=== PATIENT | female | born 1940 | race Caucasian/White ===

== ENCOUNTER 2017-10-30 12:32 | Outpatient (CLI) | payer MEDICARE, BC, OTHER | END 2017-10-30 12:33 | LOC: CARD 12:32 | PROVIDERS: ATTEND Internal Medicine Cardiovascular Disease | DX: I48.91 Unspecified atrial fibrillation (principal); I50.9 Heart failure, unspecified; I10 Essential (primary) hypertension; E78.5 Hyperlipidemia, unspecified; E11.9 Type 2 diabetes mellitus without complications; E66.9 Obesity, unspecified; N18.9 Chronic kidney disease, unspecified | CPT/HCPCS: G0463 ==

== ENCOUNTER 2018-02-05 12:10 | Outpatient (CLI) | payer MEDICARE, BC, OTHER | END 2018-02-05 12:12 | LOC: CARD 12:10 | PROVIDERS: ATTEND Internal Medicine Cardiovascular Disease | DX: I48.91 Unspecified atrial fibrillation (principal); I50.9 Heart failure, unspecified; I10 Essential (primary) hypertension; E78.5 Hyperlipidemia, unspecified; E11.9 Type 2 diabetes mellitus without complications; E66.9 Obesity, unspecified; N18.9 Chronic kidney disease, unspecified | CPT/HCPCS: G0463 ==

== ENCOUNTER 2018-04-03 10:29 | Inpatient (IN) | payer MEDICARE, BC, OTHER ==
[~2018-04-03 10:29] MED LIST: SENNOSIDES/DOCUSATE SODIUM 1 EACH TABLET PO ONE
[2018-04-03 11:38] LABS: MEAN CORPUSCULAR VOLUME 85.8 fl (80.0-100.0)
[2018-04-03 12:06] LABS: MEAN CORPUSCULAR HEMOGLOBIN 24.5 pg (28.0-34.0)
[2018-04-03 12:08] LABS: MONOCYTES % 10 % (0-11); SEGMENTED NEUTROPHILS % 62 % (39-79)
[2018-04-03 12:09] LABS: ANISOCYTOSIS 1+ (NEGATIVE); HYPOCHROMASIA 1+ (NEGATIVE)
--- NOTE | 2018-04-03 12:37 | ED Physician Documentation ---
Dyspnea - HISTORIAN Historian: patient, paramedics - HPI Stated Complaint: Increasing SOA/weakness/Bilat. Lower ext swelling Chief Complaint: Dyspnea Onset: other (unclear) Duration: continues in ED Initiating Event: out of meds (reports of noncompliance with lasix) Severity: moderate Exacerbated By: change in position, laying flat Further Comments: yes (77 year old female patient sent in from [facility] with complaints of dyspnea, back pain, blood blister on left leg, increased leg edema.) - ROS CONST: weakness EYES/ENT: none GI/: none NEURO/PSYCH: denies: headache MS/SKIN/LYMPH: back pain - PAST HX Lung Disease: none Cardiac Disease: CHF PE Risk Factors: hypertension, other (limited mobility) Surgeries/Procedures: cholecystectomy, other (Gastric bypass, cataract, left great toe amputation) Other History: diabetes Type 2, hyperlipidemia, kidney failure, other (GERD, chronic anemia, depression, chronic A Fib, wounds bilateral lower legs and buttocks, Hx renal calculi, constipation) Allergies/Adverse Reactions: Allergies Allergy/AdvReac Type Severity Reaction Status Date / Time Iodinated Contrast- Oral and Allergy Verified 04/03/18 11:50 IV Dye Home Medications: Ambulatory Orders Medication Instructions Recorded Acetaminophen [Acetaminophen Er] 650 mg PO Q4 PRN u2 08/16/17 Apixaban [Eliquis] 5 mg PO BID u2 08/16/17 Bumetanide 1 mg PO DAILY u2 08/16/17 Insulin Lispro [Humalog] 100 unit SQ sliding scale AC&HS 08/16/17 Magnesium 400 mg PO BID 08/16/17 Felton-3 Fatty Acids [Felton-3] 1,000 mg PO BID av 08/16/17 Pantoprazole Sodium 40 mg PO DAILY u2 08/16/17 Polyethylene Glycol 3350 17 gm PO DAILY 08/16/17 Potassium Chloride 20 meq PO DAILY u2 08/16/17 Ranitidine HCl 150 mg PO BID u2 08/16/17 Sennosides [Senna] 17.2 mg PO DAILY u2 08/16/17 Simvastatin 10 mg PO DAILY u2 08/16/17 Furosemide [Lasix] 1 tab PO DAILY 04/03/18 Furosemide [Lasix] 10 mg PO DAILY 04/03/18 Insulin Glargine,Hum.rec.anlog 10 units SQ HS 04/03/18 [Lantus] - SOCIAL HX Smoking History: non-smoker - FAMILY HX Family History: denies: none - VITAL SIGNS Vital Signs: Vital Signs Temp Pulse Resp BP Pulse Ox 98.2 F 99 H 16 92/41 95 04/03/18 10:30 04/03/18 11:25 04/03/18 10:30 04/03/18 10:30 04/03/18 11:25 - REVIEWED ASSESSMENTS Nursing Assessment Reviewed: Yes Vitals Reviewed: Yes Progress - Progress Progress: Reviewed records from [facility] and Dr Hernandez's note. Call to Dr Webb; will admit to Med Surg. Will place peralta due to buttock and legs wounds. Will give a 1 time dose of IV lasix with BNP 11,271 due to Cr 2.0; defer additional diuretic to Dr Webb. - EKG/XRAY/CT EKG: rhythm (A Fib; Rate 97) ED Results Lab/Radiology - Lab Results Lab Results: Lab Results 04/03/18 04/03/18 04/03/18 10:58 10:50 10:50 WBC 8.87 K/ul K/ul (4.00-12.00) RBC 3.67 M/ul L M/ul (3.90-5.20) Hgb 9.0 g/dL L g/dL (12.0-16.0) Hct 31.5 % L % (34.5-46.5) MCV 85.8 fl fl (80.0-100.0) MCH 24.5 pg L pg (28.0-34.0) MCHC 28.5 g/dL L g/dL (30.0-36.0) RDW 14.7 % H % (11.3-14.3) Plt Count 260 K/mm3 K/mm3 (130-400) Seg Neutrophils % 62 % % (39-79) Band Neutrophils % 22 % H % (0-12) Lymphocytes % 6 % L % (16-50) Monocytes % 10 % % (0-11) Polychromasia 1+ H (NEGATIVE) Hypochromasia 1+ H (NEGATIVE) Anisocytosis 1+ H (NEGATIVE) [place] Cells 1+ H (NEGATIVE) RBC Morph Comment Abnormal H (NORMAL) Sodium 129 mmol/L L mmol/L (136-145) Potassium 4.6 mmol/L mmol/L (3.5-5.1) Chloride 103 mmol/L mmol/L (98-107) Carbon Dioxide 25 mmol/L mmol/L (22-30) BUN 46 mg/dL H mg/dL (7-17) Creatinine 2.00 mg/dL H mg/dL (0.52-1.04) Estimated Creat Clear 56 Est GFR ( Amer) 31 L (60 - ) Est GFR (Non-Af Amer) 26 L (60 - ) Glucose 58 mg/dL L mg/dL (74-106) Calcium 8.6 mg/dL mg/dL (8.4-10.2) Total Bilirubin 0.7 mg/dL mg/dL (0.2-1.3) AST 19 U/L U/L (15-46) ALT 17 U/L U/L (13-69) Alkaline Phosphatase 121 U/L U/L (38-126) NT-Pro-B Natriuret Pep 91454.6 pg/mL H pg/mL (15.0-450.0) Total Protein 6.2 g/dL L g/dL (6.3-8.2) Albumin 2.9 g/dL L g/dL (3.5-5.0) - Radiology Radiology Impressions: Examination: Portable chest History: Evaluate lungs. PCXR, SOA, WEAKNESS (Hx) Comparison exam: None available. Findings: Single view of the chest demonstrates a normal cardiac and mediastinal silhouette. Parenchymal haziness at the left lung base. Obscuration of the left lung base/diaphragm. Right hemithorax without focal infiltrative process. Articular degenerative changes. Impression: Left lung base infiltrate/effusion. Electronically signed on Apr 03, 2018 11:29:39 AM CDT by: Jose Ramon Tan - Orders Orders: ED Orders Category Date Time Status Continuous EKG monitoring Q1H Care 04/03/18 11:25 Active Continuous Pulse Oximetry Q1H Care 04/03/18 11:[address] IV Lock 1T Care 04/03/18 11:01 Active CHEST 1VIEW [RAD] Stat Exams 04/03/18 Ordered BNP [NT-proBNP] Stat Lab 04/03/18 10:58 Completed CBC/PLATELET/DIFF Stat Lab 04/03/18 10:50 Completed CMP Stat Lab 04/03/18 10:50 Completed URINALYSIS Stat Lab 04/03/18 10:30 Ordered EKG WITH COMPARISON Stat Ther 04/03/18 10:57 Ordered Dyspnea Physical Exam - EXAM General Appearance: mild distress EENT: eye inspection normal, ANA Respiratory: no resp. distress, no pain on inspiration, speaks full sentences, decreased air movement (severely decreased in bases) CVS: no murmur, no gallop, no friction rub, pulses full, pulses equal, irregularly irreg. rhythm Abdomen: non-tender, no organomegaly, no distention, no ascites, other (morbid obesity) Skin: pallor, other (dressing to bilateral lower extremities and buttocks - dressings dry and intact; 3 x 7 cm raised serosangenous blister on left proximal thigh) Extremities: no evidence of injury, edema (4+ in bilateral lower legs), other (baseline - patient uses wheelchair; non-ambulatory) Neuro/Psych: oriented x3, weakness (generalized severe weakness, no focal deficit). No: speech abnml Discharge Clincal Impression: Morbid obesity, Hyponatremia, Open wounds involving multiple regions of lower extremity CHF (congestive heart failure) Qualifiers: Heart failure type: combined systolic and diastolic Heart failure chronicity: acute on chronic Qualified Code(s): I50.43 - Acute on chronic combined systolic (congestive) and diastolic (congestive) heart failure Anemia Qualifiers: Anemia type: unspecified type Qualified Code(s): D64.9 - Anemia, unspecified Renal failure Qualifiers: Renal failure chronicity: chronic Chronic kidney disease stage: stage 4 (severe) Qualified Code(s): N18.4 - Chronic kidney disease, stage 4 (severe) Disposition: ADMITTED INPATIENT Decision to Admit: [id number] Decision Time: 12:57
[2018-04-03] MEDS ORDERED: FUROSEMIDE 40 MG/4 ML VIAL IVP ONE (12:50)
[2018-04-03 15:03] LABS: APPEARANCE,URINE CLEAR (CLEAR); COLOR,URINE AMBER (YELLOW); OCCULT BLOOD,URINE 1+ (NEGATIVE); UROBILINOGEN URINE 0.2 Eu (0.2-1.0)
[2018-04-03] MEDS ORDERED: ACETAMINOPHEN 325 MG TABLET PO PRN (15:38)
[2018-04-03 17:00] VITALS: BMI 49.9
[2018-04-03] MEDS: traMADol HCL 50 MG TABLET PO PRN (17:44)
--- NOTE | 2018-04-03 17:58 | History and Physical Report ---
History of Present Illnes - History of Present Illness Reason for Visit: dyspnea History of Present Illness: 77yo white female who has been having some increasing SOB over the last 3 weeks. Patient denies any cough that she is aware. Patient has been having some mild orthopnea symptoms.Patient does have a history of congestive heart failure. Has not been taking her lasix as ordered because it causes her to have urinary incontinence. This AM awoke and had developed a large blister to the upper thigh area. Has been developing blisters to the lower legs for some time. Has gained about 40 lbs [facility]. Has been having some orthopnic symptoms. Has not been coughing, occasional wheezing noted. Has started to have some oxygen to help with breathing. - Past Medical History Cardiac: AFIB, HTN Gastrointestinal: GERD Heme/Onc: Anemia NOS Renal/: Other (kidney stones) Endocrine: Diabetes (2) - Past Surgical History Past Surgical History: Cholecystectomy, Cataract Removal, Tonsillectomy, Other (adenoidectomy, gastric by pass) - Past Family History Mother Family History: , Other (advanced age) Father Family History: Cancer (lung), (88yo) Brother 1 Family History: , Other (parkinson disease) - Past Social History Smoke: # pack years (30), Quit Alcohol: None Drugs: None Lives: Skilled Nursing Domestic Violence: Negative - Health Maintenance Health Maintenance: Pneumococcal Vaccine Influenza Vaccine: No Pneumonia Vaccine: Yes Resuscitation Status: Resusciation Status Resuscitation Status Do Not Resuscitate - Unable to Obtain History Unable to Obtain: Yes Review of Systems - Review of Systems Constitutional: Weakness, Malaise. negative: Fever, Chills Eyes: negative: pain, vision change ENT: negative: Ear Pain, Ear Discharge, Nose Pain, Nose Discharge, Nose Congestion, Mouth Pain, Throat Pain, Throat Swelling Respiratory: Shortness of Breath, SOB with Excertion, Wheezing (mild). negative: Cough, Dry, Hemoptysis, Pleuritic Pain Cardiovascular: Paroxysmal Noc. Dyspnea, Edema. negative: Chest Pain, Palpitations, Orthopnea, Light Headedness Gastrointestinal: Constipation. negative: Nausea, Vomiting, Abdominal Pain, Diarrhea, Hematochezia Genitourinary: Incontinence. negative: Dysuria, Frequency, Hematuria, Retention Musculoskeletal: Shoulder Pain, Back Pain Skin: Lesions (skin blisters). negative: Rash Neurological: negative: Weakness, Numbness, Incoordination, Change in Speech, Confusion - Medications/Allergies Allergies/Adverse Reactions: Allergies Allergy/AdvReac Type Severity Reaction Status Date / Time Iodinated Contrast- Oral and Allergy Mild Cough Verified 04/04/18 10:40 IV Dye Home Medications: Home Medications Insulin Glargine,Hum.rec.anlog [Lantus] 10 units SQ HS 04/03/18 Current Inpatient Medications: Current Inpatient Medications Acetaminophen (Tylenol) 650 mg PO Q4H PRN PRN Reason: Fever >101 Bumetanide (Bumex) 1 mg PO DAILY ELOINA Citalopram Hydrobromide (Celexa) 10 mg PO DAILY ELOINA Furosemide (Lasix) 40 mg IVP 714 ELOINA Magnesium Oxide (Mag-Oxide) 400 mg PO BID ELOINA Miscellaneous (Non Form) 10 each IM HS ELOINA Pantoprazole Sodium (Protonix) 40 mg PO DAILY ELOINA Polyethylene Glycol (Miralax) 17 gm PO DAILY ELOINA Potassium Chloride (Klor-Con M20) 20 meq PO DAILY ELOINA Sennosides (Senokot) 17.2 mg PO DAILY ELOINA Tramadol HCl (Ultram) 50 mg PO Q4 PRN PRN Reason: PAIN Last Admin: 04/03/18 17:44 Dose: 50 mg Exam - Exam Vital Signs: Vital Signs (72 hours) 04/03/18 04/03/18 04/03/18 10:30 11:25 12:25 Temperature 98.2 F Pulse Rate 99 H Pulse Rate [ 100 H Left Pulse ox] Pulse Rate [ Right Pulse ox] Respiratory 16 Rate Blood Pressure 92/41 [Right Arm] O2 Sat by Pulse 92 95 95 Oximetry 04/03/18 04/03/18 04/03/18 13:00 13:16 13:17 Temperature Pulse Rate 100 H Pulse Rate [ 102 H Left Pulse ox] Pulse Rate [ Right Pulse ox] Respiratory 14 Rate Blood Pressure 86/30 [Right Arm] O2 Sat by Pulse 98 98 95 Oximetry 04/03/18 04/03/18 04/03/18 14:00 14:56 15:00 Temperature 97.9 F 97.9 F Pulse Rate 107 H 97 H Pulse Rate [ 102 H Left Pulse ox] Pulse Rate [ 82 82 Right Pulse ox] Respiratory 24 24 Rate Blood Pressure 98/42 98/42 [Right Arm] O2 Sat by Pulse 98 97 98 Oximetry 04/03/18 04/03/18 04/03/18 16:00 17:00 17:10 Temperature Pulse Rate 100 H 100 H Pulse Rate [ Left Pulse ox] Pulse Rate [ Right Pulse ox] Respiratory Rate Blood Pressure [Right Arm] O2 Sat by Pulse 95 96 96 Oximetry 04/03/18 17:35 Temperature 97.8 F Pulse Rate 101 H Pulse Rate [ 102 H Left Pulse ox] Pulse Rate [ 97 H Right Pulse ox] Respiratory 18 Rate Blood Pressure 95/47 [Right Arm] O2 Sat by Pulse 98 Oximetry General: Alert, Oriented to Person, Oriented to Place, Oriented to Time, Cooperative, Mild distress HEENT: Atraumatic, PERRLA, EOMI, Mouth Mucous membr. moist/[place], Nose Mucous membr. moist/[place] Neck: Normal Range of Motion Carotids: WNL Thyroid: WNL Lungs: Normal air movement, Speaks full Sentences, Respiratory Distress, Rales (bases bilaterally). No: Wheezes, Rhonchi Cardiovascular: Regular rate, Normal S1, Normal S2, No murmurs Abdomen: Normal bowel sounds, Soft, No tenderness, No hepatospenomegaly, No masses Integumentary: Normal, [place], Warm, Dry, Other (open blister type wounds to the lower legs bialterally, left upper thigh and buttocks area.) Extremities: No clubbing, No cyanosis, Normal pulses, No tenderness/swelling, Other (4 plus edema) Neurological: Normal speech, Strength Equal Bilat, Normal tone, Sensation intact, Cranial nerves 3-12 NL, Reflexes 2+, Generalized Weakness. No: Normal gait Psych/Mental Status: Mental status NL, Mood NL, Appropriate Affect, Intact Judgment - Laboratory Results Laboratory Results: Laboratory Results 04/03/18 04/03/18 04/03/18 10:50 10:50 10:58 WBC 8.87 RBC 3.67 L Hgb 9.0 L Hct 31.5 L MCV 85.8 MCH 24.5 L MCHC 28.5 L RDW 14.7 H Plt Count 260 Seg Neutrophils % 62 Band Neutrophils % 22 H Lymphocytes % 6 L Monocytes % 10 Polychromasia 1+ H Hypochromasia 1+ H Anisocytosis 1+ H [place] Cells 1+ H RBC Morph Comment Abnormal H Sodium 129 L Potassium 4.6 Chloride 103 Carbon Dioxide 25 BUN 46 H Creatinine 2.00 H Estimated Creat Clear 56 Est GFR ( Amer) 31 L Est GFR (Non-Af Amer) 26 L Glucose 58 L Calcium 8.6 Total Bilirubin 0.7 AST 19 ALT 17 Alkaline Phosphatase 121 NT-Pro-B Natriuret Pep 23513.6 H Total Protein 6.2 L Albumin 2.9 L Urine Color Urine Appearance Urine pH Ur Specific [place] Urine Protein Urine Ketones Urine Occult Blood Urine Nitrite Urine Bilirubin Urine Urobilinogen Ur Leukocyte Esterase Urine Glucose 04/03/18 11:04 WBC RBC Hgb Hct MCV MCH MCHC RDW Plt Count Seg Neutrophils % Band Neutrophils % Lymphocytes % Monocytes % Polychromasia Hypochromasia Anisocytosis [place] Cells RBC Morph Comment Sodium Potassium Chloride Carbon Dioxide BUN Creatinine Estimated Creat Clear Est GFR ( Amer) Est GFR (Non-Af Amer) Glucose Calcium Total Bilirubin AST ALT Alkaline Phosphatase NT-Pro-B Natriuret Pep Total Protein Albumin Urine Color [place] Urine Appearance Clear Urine pH 5.0 Ur Specific [place] 1.020 Urine Protein Negative Urine Ketones Trace H Urine Occult Blood 1+ H Urine Nitrite Negative Urine Bilirubin 1+ H Urine Urobilinogen 0.2 Ur Leukocyte Esterase Trace H Urine Glucose Negative Assessment/Plan - Assessment/Plan (1) CHF (congestive heart failure) Status: Acute Qualifiers: Heart failure type: combined systolic and diastolic Heart failure chronicity: acute on chronic Qualified Code(s): I50.43 - Acute on chronic combined systolic (congestive) and diastolic (congestive) heart failure Plan: Will start patient on IV lasix, check weight daily and check BMP (2) Morbid obesity Status: Acute Assessment: dietary consult (3) Open wounds involving multiple regions of lower extremity Status: Acute Assessment: continue with present dressing, seems to be improving (4) Renal failure Status: Chronic Qualifiers: Renal failure chronicity: chronic Chronic kidney disease stage: stage 4 (severe) Qualified Code(s): N18.4 - Chronic kidney disease, stage 4 (severe) Assessment: will watch BUN/creatinine VTE Assessment - RISK FACTOR SCORE VTE RISK FACTOR SCORES: AGE OVER 60 YEARS, ANTICIPATED BED CONFINEMENT OR IMMOBILIZATION > 24 HOURS, CONGESTIVE HEART FAILURE OR MYOCARDIAL INFARCTION - RISK VTE MODERATE RISK: SCORE OF 2 (RISK PROXIMAL DVT 2-4%) PROPHYAXIS NEEDED
--- NOTE | 2018-04-03 18:43 | Diagnostic Imaging Report ---
JAVED ECKERT ([employer]) - ER [facility] [address] [facility].[address] [address] Report Submission Date: Apr 03, 2018 11:29:39 AM CDT Patient Study Name: YURY GONZALES Date: Apr 03, 2018 11:04:38 AM CDT Modality Type: DX Gender: F Description: CHEST : 42 Institution: [facility] Physician: JAVED ECKERT ([employer]) - ER Examination: Portable chest History: Evaluate lungs. PCXR, SOA, WEAKNESS (Hx) Comparison exam: None available. Findings: Single view of the chest demonstrates a normal cardiac and mediastinal silhouette. Parenchymal haziness at the left lung base. Obscuration of the left lung base/diaphragm. Right hemithorax without focal infiltrative process. Articular degenerative changes. Impression: Left lung base infiltrate/effusion. Electronically signed on Apr 03, 2018 11:29:39 AM CDT by: Jose Ramon NICHOLS
[2018-04-03] MEDS: MAGNESIUM OXIDE 400 MG TABLET PO SCH (20:15)
[2018-04-03] MEDS: APIXABAN 2.5 MG TABLET PO SCH (20:15)
[2018-04-03] MEDS: MENTHOL/ZINC OXIDE 1 APPL TUBE TP SCH (20:43)
[2018-04-03] MEDS ORDERED: Non-Formulary 1 EACH IM SCH (21:00)
[2018-04-03] MEDS ORDERED: SENNOSIDES/DOCUSATE SODIUM 1 EACH TABLET PO ONE (22:21)
[2018-04-04] MEDS: traMADol HCL 50 MG TABLET PO PRN ×4 (04:46→18:18)
[2018-04-04] MEDS: FUROSEMIDE 40 MG/4 ML VIAL IVP SCH ×2 (06:19→14:48)
[2018-04-04] MEDS: POTASSIUM CHLORIDE 20 MEQ TABLET.ER PO SCH (09:15)
[2018-04-04] MEDS: CITALOPRAM HYDROBROMIDE 20 MG TABLET PO SCH (09:15)
[2018-04-04] MEDS: MAGNESIUM OXIDE 400 MG TABLET PO SCH ×2 (09:15→20:21)
[2018-04-04] MEDS: APIXABAN 2.5 MG TABLET PO SCH ×2 (09:15→20:21)
[2018-04-04] MEDS: PANTOPRAZOLE SODIUM 40 MG TABLET PO SCH (09:16)
[2018-04-04] MEDS: SENNOSIDES 8.6 MG TABLET PO SCH (09:16)
[2018-04-04] MEDS: POLYETHYLENE GLYCOL 3350 17 GM POWD.PACK PO SCH (09:16)
[2018-04-04] MEDS: BUMETANIDE 1 MG TABLET PO SCH (09:39)
[2018-04-04] MEDS: MENTHOL/ZINC OXIDE 1 APPL TUBE TP SCH ×2 (09:40→12:26)
[2018-04-04] MEDS ORDERED: INSULIN GLARGINE,HUM.REC.ANLOG 100 UNIT/ML PEN.INJCTR SQ SCH (21:00)
[2018-04-04] MEDS: Non-Formulary 1 EACH TOP SCH (21:56)
[2018-04-05] MEDS: traMADol HCL 50 MG TABLET PO PRN (00:30)
[2018-04-05 01:29] VITALS: BP 82/39
[2018-04-05] MEDS ORDERED: FUROSEMIDE 40 MG/4 ML VIAL IVP SCH (07:00)
[2018-04-05] MEDS: CITALOPRAM HYDROBROMIDE 20 MG TABLET PO SCH (09:43)
[2018-04-05] MEDS: BUMETANIDE 1 MG TABLET PO SCH (09:43)
[2018-04-05] MEDS: APIXABAN 2.5 MG TABLET PO SCH (09:44)
[2018-04-05] MEDS: MAGNESIUM OXIDE 400 MG TABLET PO SCH (09:45)
[2018-04-05] MEDS: POTASSIUM CHLORIDE 20 MEQ TABLET.ER PO SCH (09:45)
[2018-04-05] MEDS: POLYETHYLENE GLYCOL 3350 17 GM POWD.PACK PO SCH (09:45)
[2018-04-05] MEDS: SENNOSIDES 8.6 MG TABLET PO SCH (09:46)
[2018-04-05] MEDS: PANTOPRAZOLE SODIUM 40 MG TABLET PO SCH (09:46)
--- NOTE | 2018-04-05 10:13 | Inpatient Progress Note ---
Subjective - Required Recertification Statement I anticipate X number of days because-include discharge plan: 1 day - Review of Systems Events since last encounter: Patient seems to be doing some better today. Breathing is better. Patient states that she is getting tired of fighting her chronic problems. Leg blisters look about the same. Thigh blister is weeping more. Appetite is fair. Pulmonary: Denies: Dyspnea, Cough Cardiovascular: Denies: Chest Pain, Palpitations, Paroxysmal Noc. Dyspnea Gastrointestinal: Denies: Nausea, Vomiting, Abdominal Pain Genitourinary: Denies: Dysuria, Frequency Objective - Exam Vitals and I&O: Vital Signs Temp 97.8 F 04/05/18 01:27 Pulse 108 H 04/05/18 04:00 Resp 24 04/05/18 05:56 BP 82/39 04/05/18 01:27 Pulse Ox 99 04/05/18 01:27 Intake & Output 04/04/18 04/04/18 04/05/18 11:59 23:59 11:59 Intake Total 445 812 140 Output Total 75 45 75 Balance 370 767 65 Weight 125.078 kg Intake: IV 5 52 Left Forearm 0 Right Hand 5 52 Oral 440 760 140 Output: Urine 75 45 75 Uretheral (Roman) 10 Other: Voiding Method Indwelling Catheter Indwelling Catheter Indwelling Catheter General: Alert, Oriented to Person, Oriented to Place, Oriented to Time, Cooperative, No acute distress Neck: Supple, No JVD Lungs: Clear to auscultation, Normal air movement, Speaks full Sentences, Rales. No: Wheezes, Rhonchi Cardiovascular: Regular rate. No: Murmur Extremities: No clubbing, No cyanosis, Other (edema improved some) Skin: Normal, [place], Other (blisters as before. ) Psych/Mental Status: Mental status NL, Mood NL, Appropriate Affect, Intact Judgment - Results Results: Laboratory Results WBC 8.87 K/ul (4.00-12.00) 04/03/18 10:50 RBC 3.67 M/ul (3.90-5.20) L 04/03/18 10:50 Hgb 9.0 g/dL (12.0-16.0) L 04/03/18 10:50 Hct 31.5 % (34.5-46.5) L 04/03/18 10:50 MCV 85.8 fl (80.0-100.0) 04/03/18 10:50 MCH 24.5 pg (28.0-34.0) L 04/03/18 10:50 MCHC 28.5 g/dL (30.0-36.0) L 04/03/18 10:50 RDW 14.7 % (11.3-14.3) H 04/03/18 10:50 Plt Count 260 K/mm3 (130-400) 04/03/18 10:50 Seg Neutrophils % 62 % (39-79) 04/03/18 10:50 Band Neutrophils % 22 % (0-12) H 04/03/18 10:50 Lymphocytes % 6 % (16-50) L 04/03/18 10:50 Monocytes % 10 % (0-11) 04/03/18 10:50 Polychromasia 1+ (NEGATIVE) H 04/03/18 10:50 Hypochromasia 1+ (NEGATIVE) H 04/03/18 10:50 Anisocytosis 1+ (NEGATIVE) H 04/03/18 10:50 [place] Cells 1+ (NEGATIVE) H 04/03/18 10:50 RBC Morph Comment Abnormal (NORMAL) H 04/03/18 10:50 Sodium 129 mmol/L (136-145) L 04/03/18 10:50 Potassium 4.6 mmol/L (3.5-5.1) 04/03/18 10:50 Chloride 103 mmol/L (98-107) 04/03/18 10:50 Carbon Dioxide 25 mmol/L (22-30) 04/03/18 10:50 BUN 46 mg/dL (7-17) H 04/03/18 10:50 Creatinine 2.00 mg/dL (0.52-1.04) H 04/03/18 10:50 Estimated Creat Clear 56 04/03/18 10:50 Est GFR ( Amer) 31 (60-) L 04/03/18 10:50 Est GFR (Non-Af Amer) 26 (60-) L 04/03/18 10:50 Glucose 58 mg/dL (74-106) L 04/03/18 10:50 Calcium 8.6 mg/dL (8.4-10.2) 04/03/18 10:50 Total Bilirubin 0.7 mg/dL (0.2-1.3) 04/03/18 10:50 AST 19 U/L (15-46) 04/03/18 10:50 ALT 17 U/L (13-69) 04/03/18 10:50 Alkaline Phosphatase 121 U/L (38-126) 04/03/18 10:50 NT-Pro-B Natriuret Pep 85470.6 pg/mL (15.0-450.0) H 04/03/18 10:58 Total Protein 6.2 g/dL (6.3-8.2) L 04/03/18 10:50 Albumin 2.9 g/dL (3.5-5.0) L 04/03/18 10:50 Urine Color [place] (YELLOW) 04/03/18 11:04 Urine Appearance Clear (CLEAR) 04/03/18 11:04 Urine pH 5.0 (5.0 - 8.0) 04/03/18 11:04 Ur Specific [place] 1.020 (1.010-1.030) 04/03/18 11:04 Urine Protein Negative mg/dL (NEGATIVE) 04/03/18 11:04 Urine Ketones Trace mg/dL (NEGATIVE) H 04/03/18 11:04 Urine Occult Blood 1+ (NEGATIVE) H 04/03/18 11:04 Urine Nitrite Negative (NEGATIVE) 04/03/18 11:04 Urine Bilirubin 1+ (NEGATIVE) H 04/03/18 11:04 Urine Urobilinogen 0.2 Eu (0.2-1.0) 04/03/18 11:04 Ur Leukocyte Esterase Trace (NEGATIVE) H 04/03/18 11:04 Urine Glucose Negative mg/dL (NEGATIVE) 04/03/18 11:04 Assessment/Plan - Assessment/Plan (1) CHF (congestive heart failure) Status: Acute Current Visit: Yes Qualifiers: Heart failure type: combined systolic and diastolic Heart failure chronicity: acute on chronic Qualified Code(s): I50.43 - Acute on chronic combined systolic (congestive) and diastolic (congestive) heart failure Assessment: improved, well recheck labs and chest x-ray in AM (2) Morbid obesity Status: Acute Current Visit: Yes (3) Open wounds involving multiple regions of lower extremity Status: Acute Current Visit: Yes Assessment: Thigh blister has progress. (4) Renal failure Status: Chronic Current Visit: Yes Qualifiers: Renal failure chronicity: chronic Chronic kidney disease stage: stage 4 (severe) Qualified Code(s): N18.4 - Chronic kidney disease, stage 4 (severe)
[2018-04-05] MEDS: Non-Formulary 1 EACH TOP SCH (10:20)
[2018-04-05] MEDS: DEXTROSE 50% 50 ML DISP.SYRIN IVP PRN ×2 (11:35→12:30)
[2018-04-05] MEDS: MENTHOL/ZINC OXIDE 1 APPL TUBE TP SCH (12:00)
[2018-04-05] MEDS ORDERED: DEXTROSE 50% 50 ML DISP.SYRIN IVP ONE (12:33)
--- NOTE | 2018-04-16 20:31 | Discharge Summary ---
Discharge Summary - Discharge Sumary History of Present Illness: 77yo white female who has been having some increasing SOB over the last 3 weeks. Patient denies any cough that she is aware. Patient has been having some mild orthopnea symptoms.Patient does have a history of congestive heart failure. Has not been taking her lasix as ordered because it causes her to have urinary incontinence. This AM awoke and had developed a large blister to the upper thigh area. Has been developing blisters to the lower legs for some time. Has gained about 40 lbs since admission to [facility]. Has been having some orthopnic symptoms. Has not been coughing, occasional wheezing noted. Has started to have some oxygen to help with breathing. Condition at Discharge: Guarded Home Medications: Ambulatory Orders Medication Instructions Recorded Acetaminophen [Acetaminophen ER] 650 mg PO Q4 PRN u2 08/16/17 Bumetanide 1 mg PO DAILY u2 08/16/17 Insulin Lispro [Humalog] 100 unit SQ sliding scale AC&HS 08/16/17 Polyethylene Glycol 3350 17 gm PO DAILY 08/16/17 Sennosides [Senna] 17.2 mg PO DAILY u2 08/16/17 Insulin Glargine,Hum.rec.anlog 10 units SQ HS 04/03/18 [Lantus] Consultations this Visit: None Procedures this Visit: None Allergies/Adverse Reactions: Allergies Allergy/AdvReac Type Severity Reaction Status Date / Time Iodinated Contrast- Oral and Allergy Mild Cough Verified 04/04/18 10:40 IV Dye Discharge Summary: Patient was started on IV Lasix therapy for her congestive heart failure. Patient did have been diuresis. Admission creatinine/BUN was 2.0/4.6. This appeared to be at her baseline. Patient BNP was 11,271. Hemoglobin was low at 1.0. Patient has had some anemia of chronic disease. Sodium was 129. Patient did show some improvement during the first 24 hours. However after that her status did not show much improvement. On the day of her discharge patient blisters on her legs became worse. Patient called her family member in and told her family members and staff that she did not want any further care. She was tired of fighting her disease process and she wanted to be taken back to [facility]. Patient was aware of the consequences of her decisions and that this would probably speed her demise. After talking with me and her family members it was elected to go ahead and honor her wishes. Patient was subsequently transferred back to [facility] in guarded condition. - Final Diagnosis (1) CHF (congestive heart failure) Problems: stable, improved (2) Morbid obesity Problems: stable (3) Open wounds involving multiple regions of lower extremity Problems: are getting worse (4) Renal failure Problems: guarded
== END 2018-04-05 13:00 | DRG 292 ==
LOC: ED 10:29 → SOUTH 12:36
PROVIDERS: ADMIT Family Medicine; ATTEND Family Medicine
DX: I50.43 Acute on chronic combined systolic (congestive) and diastolic (congestive) heart failure (principal); L97.829 Non-pressure chronic ulcer of other part of left lower leg with unspecified severity; L97.819 Non-pressure chronic ulcer of other part of right lower leg with unspecified severity; N18.4 Chronic kidney disease, stage 4 (severe); E87.1 Hypo-osmolality and hyponatremia; L98.419 Non-pressure chronic ulcer of buttock with unspecified severity; E66.9 Obesity, unspecified; E11.9 Type 2 diabetes mellitus without complications; E78.5 Hyperlipidemia, unspecified; I48.91 Unspecified atrial fibrillation; D64.9 Anemia, unspecified; F32.9 Major depressive disorder, single episode, unspecified; K59.00 Constipation, unspecified
CPT/HCPCS: 51702; 71045; 80053; 81002; 83880; 85025; 93005; A9270; J1940; 99222; 99232; 99238; S1016